=== PATIENT | female | born 1975 | race Caucasian/White ===

== ENCOUNTER → 2016-09-23 | Outpatient (CLI) | payer OTHER ==
[~2016-09-23] MED LIST: GADOBUTROL 10 ML VIAL IVP ONE
--- NOTE | 2016-09-24 14:49 | MR ---
MRI of the Abdomen (Without and With Contrast) at 2009 Hours Clinical Indications: Elevated metanephrines. Technique: Precontrast 2D FIESTA axial, FSE T2 breathhold axial and coronal, in and out of phase axi al imaging, and T1 LAVA fat-suppressed imaging. Precontrast and postcontrast axial T1 fat-suppressed images before and at 1 minute, 3 minutes, 5 minutes and 10 minutes after 6 mL Gadavist were injected intravenously without complication using a power injector. Findings: A 21 mm lesion is seen in the lateral segment left lobe of the liver anteriorly which has s lightly increased signal intensity on the T2-weighted imaging. It has nodular enhancement which gradu ally fills in on the delayed imaging most compatible with a benign hemangioma. Two smaller 1 cm lesio ns are seen superiorly in the lateral segment left lobe of the liver which have some nodular pooling of contrast within them, also most likely benign hemangiomas. No suspicious liver lesion is visualize d. Pancreas is normal in size and appearance without evidence for mass or abnormal enhancement. Splee n is normal in appearance. Both adrenal glands are normal in size without evidence for mass or abnorm al enhancement. Both kidneys enhance normally without evidence for mass or hydronephrosis. No signifi cant abdominal lymphadenopathy. No evidence for retroperitoneal mass. No evidence for mass at the bif urcation of the common iliac arteries. Impression: 1. No evidence for adrenal gland mass or retroperitoneal mass. If there is further clinical concern f or the elevated metanephrines, an MIBG and/or octreotide scan could be performed. 2. Three benign liver lesions most likely representing benign hemangiomas. This was also reviewed by Dr. Kai Taylor who concurs.
== END ==
LOC: FIMAGING 19:22
PROVIDERS: ATTEND Family Medicine
DX: R82.5 Elevated urine levels of drugs, medicaments and biological substances (principal); D18.09 Hemangioma of other sites
CPT/HCPCS: A9585

== ENCOUNTER 2017-11-03 08:18 | Day surgery (SDC) | payer OTHER ==
[2017-11-03] MEDS ORDERED: MIDAZOLAM 2 MG/2 ML VIAL IVP ONE (08:35)
[2017-11-03] MEDS ORDERED: fentaNYL 100 MCG/2 ML INJ IVP ONE (08:35)
[2017-11-03] MEDS ORDERED: NS 500 ML IV ONE (08:35)
[2017-11-03] MEDS ORDERED: BENZOCAINE UNIT DOSE SPRAY HURRICAINE MM ONE (08:35)
--- NOTE | 2017-11-03 09:06 | PDHPUP ---
History & Physical Update H&P update statement: This history and physical update is based on an assessment of the patient which was completed after admission or registration (within 24 hours), but prior to the surgery/procedure. H&P update: H&P reviewed & patient examined, no change in patient's condition since H&P completed
[2017-11-03] MEDS ORDERED: PROPOFOL 200 MG/20 ML VIAL ONE (09:19)
[2017-11-03] MEDS ORDERED: PROPOFOL/EMULSION 500 MG/50 ML BOTTLE IV ONE ×2 (09:19→09:30)
[2017-11-03] MEDS ORDERED: PERFLUTREN LIPID MICROSPHERES 1.1 MG/ML VIAL IV ONE (09:42)
--- NOTE | 2017-11-03 10:15 | PDANEPAE ---
ANE History of Present Illness here for TERENCE ANE Past Medical History - Cardiovascular History Hx Hypertension: No Hx Arrhythmias: No Hx Chest Pain: No Hx Coronary Artery / Peripheral Vascular Disease: No Hx CHF / Valvular Disease: No Hx Palpitations: Yes - Pulmonary History Hx COPD: No Hx Asthma/Reactive Airway Disease: No Hx Recent Upper Respiratory Infection: No Hx Oxygen in Use at Home: No Hx Sleep Apnea: No - Endocrine History Hx Diabetes: No Hypothyroid: No Hyperthyroid: No Obesity: no - Renal History Hx Renal Disorders: No - Liver History Hx Hepatic Disorders: No - Neurological & Psychiatric Hx Hx Neurological and Psychiatric Disorders: No ANE Review of Systems Review of systems is: negative Review of Systems: - Exercise capacity Exercise capacity: >=4 METS ANE Patient History - Allergies Allergies/Adverse Reactions: amoxicillin [Amoxicillin] Allergy (Intermediate, Verified 10/24/11 03:59) swelling gluten [Gluten] Allergy (Mild, Verified 10/24/11 22:35) soy [Soy] Allergy (Mild, Verified 10/24/11 22:35) - Home Medications Home Medications: NK [No Known Home Meds] 12/05/13 [Last Taken Unknown] - NPO status NPO Status: no food or drink >8 hours - Anes Hx Anes Hx: no prior problems - Smoking Hx Smoking Status: Never smoked ANE Labs/Vital Signs - Vital Signs Vital Signs: reviewed preoperatively; see RN documention for details Height: 167.6 cm Weight: 60.8 kg ANE Physical Exam - Airway Neck exam: FROM Mallampati Score: Class 1 - Pulmonary Pulmonary: no respiratory distress - Cardiovascular Cardiovascular: regular rate and rhythym - ASA Status ASA Status: II ANE Anesthesia Plan Anesthesia Plan: GA with mask
--- NOTE | 2017-11-03 10:16 | POSTANESTH ---
Post Anesthetic Evaluation Cardiovascular Status: Normal, Stable Respiratory Status: Normal, Stable Level of Consciousness/Mental Status: Can Participate in Eval Pain Control: Adequate, Prn Tx Ordered Nausea/Vomiting Control: Adequate, Prn Tx Ordered Complications Possibly Related to Anesthesia: None Noted
--- NOTE | 2017-11-03 10:46 | CPR ---
[f rep st] NONINVASIVE CARDIAC PROCEDURE REPORT DATE OF PROCEDURE: 11/03/2017 PROCEDURE PERFORMED: Transesophageal echocardiogram. INDICATION: Abnormal echodensity seen on the right atrium on transthoracic echocardiogram from 2017. PROCEDURE: After informed consent was obtained for both TERENCE and anesthesia, patient was sedated with propofol. Once appropriate level of sedation was achieved, TERENCE probe was passed through a bite bloc k without incident. TERENCE probe was used to take images of all cardiac structures with primary focus o n the right atrium. 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 This was supported by 3D shirin ging. Definity contrast was also used which did not clearly delineate the structure noted with ultra sound as well as with 3D imaging. The remainder of her echocardiogram was unremarkable. Please see complete echo report for details. Patient tolerated the procedure well. There were no postoperative complications. TERENCE probe was zahra amy without incident. PLAN: 1. Will review images with patient and her . 2. Will plan on cardiac MRI. /[id number]/MODL
[2017-11-03] MEDS ORDERED: DIAZEPAM 5 MG TAB PO ONE (12:00)
--- NOTE | 2017-11-03 14:17 | ECHO ---
[email or web address] [address] Main: [phone] Fax: Transesophageal Echocardiography Name: LUCIEN JORDAN MR#: [id number] Study Date: 11/03/2017 Study Time: 08:50 AM Date of : 1975 Age: 42 year(s) Height: ( ) Weight: ( ) BSA: Gender: Female Examination: TERENCE Indication: assess RA for thrombus/mass Image Quality: Contrast: Requested by: Jack Morris Heart Rate: Rhythm: BP: / Procedure Staff Retoucher: Gayle Coto [facility] Reading Physician: Jack Morris MD Requesting Provider: TERENCE Exam Details Patient Consent: Risks, alternatives of procedure explained to patient, informed consent obtained. Conclusions: Normal global systolic LV function. Normal size right ventricle. Normal RV function. The left atrium is normal in size. The right atrium is normal in size. There is an echo density that is consistent with an atrial myxoma attached to the free wall of the right atrium . Measurements: Chambers Valvular Assessment AV/MV Valvular Assessment TV/PV Normal Normal Normal Name Value Range Name Value Range Name Value Range Additional Measurements: Findings: Left Ventricle: Normal size left ventricle. No LV hypertrophy. Normal global systolic LV function. No regional wall motion abnormality. Normal diastolic LV function. Right Ventricle: Normal size right ventricle. Normal RV function. Left Atrium: Patient: LUCIEN JORDAN Study Date: 11/03/2017 Page 1 of 2 08:50 AM The left atrium is normal in size. Right Atrium: The right atrium is normal in size. There is an echo density that is consistent with an atrial myxoma attached to the free wall of the right atrium . Mitral Valve: The mitral valve is normal in appearance and function. There is no mitral valve regurgitation. Aortic Valve: The aortic valve is tri-leaflet and functions normally. There is no aortic valve regurgitation. No aortic valve stenosis is present. Tricuspid Valve: The tricuspid valve is normal in appearance and function. There is no tricuspid valve regurgitation. Pulmonic Valve: The pulmonic valve is normal in appearance and function. Aorta: The aorta is normal. Pericardium: No pericardial effusion. Exam Comments: .165mg of definity administered to help rule out RA mass. l1n (No Signature Object) Patient: LUCIEN JORDAN Study Date: 11/03/2017 Page 2 of 2 08:50 AM [id number]
[2017-11-03] MEDS ORDERED: GADOBUTROL 10 ML VIAL IVP ONE (14:29)
== END 2017-11-03 17:18 | disposition home or self-care (01) ==
LOC: FCATH 08:18
PROVIDERS: ATTEND Internal Medicine Cardiovascular Disease
PROC: B246ZZ4 Ultrasonography of Right and Left Heart, Transesophageal (ICD-10-PCS; principal; 2017-11-03)
DX: R93.1 Abnormal findings on diagnostic imaging of heart and coronary circulation (principal); F41.9 Anxiety disorder, unspecified; Z88.0 Allergy status to penicillin
CPT/HCPCS: A9585; J2704; Q9957

== ENCOUNTER → 2017-11-03 | Outpatient (CLI) | payer OTHER | LOC: FIMAGING 13:13 | PROVIDERS: ATTEND Internal Medicine Cardiovascular Disease | DX: R93.1 Abnormal findings on diagnostic imaging of heart and coronary circulation (principal) | CPT/HCPCS: A9585 ==